=== PATIENT | male | born 1955 | race Hispanic/Latino ===

== ENCOUNTER 2019-07-24 06:54 | Day surgery (SDC) | payer OTHER ==
[2019-07-23 12:05] LABS: BASOPHILS % (AUTO) 0.8 % (0.0-5.0); EOSINOPHILS % (AUTO) 3.8 % (0.0-8.0); LYMPHOCYTES % (AUTO) 32.4 % (21.0-51.0); MEAN CORPUSCULAR HGB CONC 33.6 g/dL (32.0-36.0); MEAN CORPUSCULAR VOLUME 89.5 fL (79-99); MONOCYTES % (AUTO) 9.5 % (3.0-13.0); NEUTROPHILS % (AUTO) 53.4 % (40.0-77.0); PLATELET COUNT (AUTO) 268 K/uL (130-400); RED BLOOD CELL COUNT(AUTO) 5.03 MIL/uL (4.50-6.20); RED CELL DISTRIBUTION WIDTH 13.8 % (11.0-15.5); WHITE BLOOD COUNT (AUTO) 7.2 K/uL (4.8-10.8)
[2019-07-23 12:16] LABS: CREATININE 0.9 mg/dL (0.5-1.5); POTASSIUM 4.7 mmol/L (3.5-5.1)
[2019-07-23 12:36] VITALS: BP 160/89
[2019-07-24] VITALS (17 sets, daily range): BP systolic 88–174; BP diastolic 52–91
[~2019-07-24] VITALS: Ht 182.9 cm; Wt 102.8 kg
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
[2019-07-24] MEDS ORDERED: LACTATED RINGERS 1000ML 1,000 ML IV ONE (08:10)
[2019-07-24] MEDS: CEFAZOLIN SODIUM 1 GM VIAL ONE ×2 (08:18→09:15)
[2019-07-24] MEDS ORDERED: MIDAZOLAM HCL 1 MG/ML 2ML VIAL ONE ×2 (08:46→08:53)
[2019-07-24] MEDS ORDERED: LIDOCAINE PF 2% 5ML ABBOJECT ONE (09:06)
[2019-07-24] MEDS ORDERED: PROPOFOL 10 MG/ML 20ML VIAL IV ONE (09:06)
[2019-07-24] MEDS ORDERED: FENTANYL CITRATE PF 50 MCG/1 ML 5ML AMP IV ONE (09:06)
[2019-07-24] MEDS ORDERED: DEXAMETHASONE SOD PHOSPHATE 10MG/ML 1ML VIAL ONE (09:28)
[2019-07-24] MEDS ORDERED: ONDANSETRON HCL 4 MG/2 ML VIAL ONE (09:28)
[2019-07-24] MEDS ORDERED: ACET1TAB12 PO (10:38)
[2019-07-24] MEDS ORDERED: CEPH500B PO (10:38)
[2019-07-24] MEDS ORDERED: IBUP-2077 PO (10:38)
--- NOTE | 2019-07-24 11:15 | NUR ---
PATIENT ARRIVED TO DAY PATIENT VIA STRETCHER BY SHONDA NIXON. PATIENT AAOX3, RESPIRATIONS UNLABORED, VITAL SIGNS STABLE, DENIES ANY PAIN AT THIS TIME. DRESSING (HARRY WRAP TO RIGHT KNEE) IS DRY/INTACT.
--- NOTE | 2019-07-24 11:40 | NUR ---
DISCHARGE INSTRUCTIONS PROVIDED TO PATIENT'S SPOUSE (CODI). READ INSTRUCTIONS ON HANDOUTS, PROVIDED FOLLOW UP APPOINTMENT, AND INSTRUCTIONS ON INCISION CARE. PRESCRIPTIONS PROVIDED AND INSTRUCTIONS ON NEW MEDICATIONS PROVIDED WELL. PER PATIENT AND SPOUSE, PATIENT ALREADY HAS CRUTCHES AT HOME TO USE.
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
== END 2019-07-24 12:08 | disposition home or self-care (01) ==
LOC: DAH 06:54
PROVIDERS: ATTEND Orthopaedic Surgery
DX: S83.241A Other tear of medial meniscus, current injury, right knee, initial encounter (principal); M22.41 Chondromalacia patellae, right knee; M17.11 Unilateral primary osteoarthritis, right knee; I10 Essential (primary) hypertension; E78.5 Hyperlipidemia, unspecified; X58.XXXA Exposure to other specified factors, initial encounter; Y93.89 Activity, other specified; Y92.89 Other specified places as the place of occurrence of the external cause
CPT/HCPCS: 29881; 36415; 80048; 82948; 85025; A4213; A4215; A4221; A4222; A4223; A4606; A4649 ×2; A4663; A4930; A5120; A6223; J0690; J1100; J2001; J2250 ×2; J2405; J2704; J3010; J7030; J7120 ×2

== ENCOUNTER 2024-03-09 13:55 | Emergency (ER) | payer OTHER ==
[~2024-03-09] VITALS: Ht 182.9 cm; Wt 102.1 kg
[~2024-03-09 13:55] MED LIST: ACET1TAB12 PO; CEPH500B PO; IBUP-2077 PO
[2024-03-09] MEDS: morPHINE 2 MG SYG IVP ONE ×2 (14:24→16:03)
[2024-03-09] MEDS: ondanSETRON 4MG INJ IVP ONE (14:24)
[2024-03-09 14:28] LABS: BASOPHILS # (AUTO) 0.04 K/uL (0.00-0.20); BASOPHILS % (AUTO) 0.4 % (0.0-5.0); EOSINOPHILS # (AUTO) 0.19 K/uL (0.00-0.70); HEMATOCRIT 43.5 % (42-54); IMMATURE GRANULOCYTE ABSOLUTE 0.07 K/uL (0-1); LYMPHOCYTES # (AUTO) 2.6 K/uL (1.0-4.8); MEAN CORPUSCULAR HEMOGLOBIN 30.9 pg (27.0-33.0); MEAN CORPUSCULAR HGB CONC 34.3 g/dL (32.0-36.0); MEAN CORPUSCULAR VOLUME 90.2 fL (79-99); MONOCYTES # (AUTO) 0.8 K/uL (0.1-1.0); MONOCYTES % (AUTO) 8.4 % (3.0-13.0); NEUTROPHILS # (AUTO) 5.7 K/uL (1.8-7.7); NEUTROPHILS % (AUTO) 60.5 % (40.0-77.0); PLATELET COUNT (AUTO) 246 K/uL (130-400); RED BLOOD CELL COUNT(AUTO) 4.82 MIL/uL (4.50-6.20); WHITE BLOOD COUNT (AUTO) 9.4 K/uL (4.8-10.8)
[2024-03-09 14:39] LABS: CREATININE 0.9 mg/dL (0.5-1.3); POTASSIUM 3.9 mmol/L (3.5-5.1)
[2024-03-09] MEDS ORDERED: IOHEXOL 350 MG/ML 100ML INFUS..BTL IV ONE (14:48)
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
[2024-03-09] MEDS ORDERED: KETO10TA2 PO (15:51)
[2024-03-09] MEDS ORDERED: CYCL10TA16 PO (15:51)
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
[2024-03-09] MEDS: ketOROlac 15MG/ML VIAL (15MG/ML) IV ONE (16:03)
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
[2024-03-09 16:26] VITALS: BP 168/79; PULSE 62; RESP 18; TEMP 98.8; O2SAT 99
--- NOTE | 2024-03-10 05:12 | EKG ---
[facility] Test Date: 2024-03-09 Test Time: 15:22:53 Pat Name: SYL EMERSON Department: ED Room: Gender: Squeegeer And Former: [facility] : 1955 Requested By: KLARISSA UMANZOR Order Number: [id number] Reading MD: Crescencio Doss Measurements Intervals [place] Rate: 62 P: 73 [place]: 163 QRS: 47 QRSD: 78 T: 48 QT: 410 QTc: 416 Interpretive Statements Sinus rhythm No previous ECG available for comparison Electronically Signed On 03-11-2024 21:29:47 [employer] by Crescencio Doss Please click the below link to view image of tracing.
== END 2024-03-09 16:43 | disposition home or self-care (01) ==
LOC: EDH 13:55
DX: S20.219A Contusion of unspecified front wall of thorax, initial encounter (principal); I10 Essential (primary) hypertension; Z79.899 Other long term (current) drug therapy; V89.2XXA Person injured in unspecified motor-vehicle accident, traffic, initial encounter; Y93.89 Activity, other specified; Y92.488 Other paved roadways as the place of occurrence of the external cause; Y99.8 Other external cause status
CPT/HCPCS: 99285; 71260; 96374; 96375; 71045; 82550; 84484; 80048; 85025; 36415; 73590; 74177; 93005; 96376; J2270 ×2; J2405; J1885; Q9967